=== PATIENT | male | born 1940 | race Caucasian/White ===

== ENCOUNTER 2018-08-27 13:02 | Emergency (ER) | payer OTHER ==
[~2018-08-27] VITALS: Ht 170.2 cm; Wt 73.5 kg
[~2018-08-27 13:02] MED LIST: ALPR0.252 PO; AMOX500C25 PO; ASPI-1718 PO; ATEN25TA7 PO; CLOP75TA PO; FENO145T PO; GEMF600T5 PO; LIRA6SOL SC; RANI-287 PO; SIMV40TA1 PO; TIZA4TAB5 PO
--- NOTE | 2018-08-27 13:02 | NUR ---
PATIENT BIB W/C TO ER BED 2.
--- NOTE | 2018-08-27 13:15 | NUR ---
PT IS A 77 Y/O MALE WHO PRESENTS TO THE ED C/O CHEST PRESSURE. PT STATES THAT IT STARTED SINCE HIS OPEN HEARRT SURGERY 05/03/18. PT ALSO REPORTS CHRONIC DIZZINESS AND REPORTS MULTIPLE FALLS IN THE LAST FEW MONTHS, DENIES LOC. NO OBVIOUS TRAUMA/DEFORMITY, NOTED REDNESS AND TENDERNESS TO R HIP. PT REPORTS 10/10 ACHING R HIP PAIN THAT DOES NOT RADIATE. PT DENIES SOB, N/V/D. PT AWAKE AND ALERT, RR EVEN/UNLABORED. PT REPOSITIONED FOR COMFORT, BED IN LOWEST POSITION. ER MD DR. WATSON NOTIFIED. WILL CONTINUE TO MONITOR. MEDHX:DM, HTN, OPEN HEART SURGERY, HLD, ANXIETY NKA
[2018-08-27 13:20] VITALS: BP 137/89
[2018-08-27] MEDS ORDERED: ASPIRIN 81 MG TAB.CHEW PO ONE (13:20)
[2018-08-27] MEDS ORDERED: MECLIZINE 25 MG TAB PO ONE (13:35)
[2018-08-27 13:47] LABS: BASOPHILS # (AUTO) 0.1 K/uL (0.00-0.22); BASOPHILS % (AUTO) 1.4 % (0.0-2.0); EOSINOPHILS # (AUTO) 0.4 K/uL (0-0.4); EOSINOPHILS % (AUTO) 6.3 % (0.0-4.0); HEMATOCRIT 38.5 % (36-52); HEMOGLOBIN 12.9 g/dL (12.0-18.0); LYMPHOCYTES # (AUTO) 1.4 K/uL (2.0-11.5); LYMPHOCYTES % (AUTO) 23.7 % (20.5-51.1); MEAN CORPUSCULAR HEMOGLOBIN 32 pg (27-31); MEAN CORPUSCULAR HGB CONC 34 g/dL (33-37); MEAN CORPUSCULAR VOLUME 94.2 fL (80-94); MONOCYTES # (AUTO) 0.4 K/uL (0.8-1.0); MONOCYTES % (AUTO) 7.1 % (1.7-9.3); NEUTROPHILS # (AUTO) 3.6 K/uL (1.8-7.7); NEUTROPHILS % (AUTO) 61.5 % (42.2-75.2); PLATELET COUNT (AUTO) 160 K/uL (140-450); RED BLOOD CELL COUNT(AUTO) 4.08 MIL/uL (4.20-6.10); RED CELL DISTRIBUTION WIDTH 13.7 % (11.6-13.7); WHITE BLOOD COUNT (AUTO) 5.8 K/uL (4.8-10.8)
--- NOTE | 2018-08-27 13:53 | NUR ---
PT REFUSING CT OF THE HEAD AT THIS TIME. DR WATSON NOTIFIED.
[2018-08-27 13:55] LABS: ANION GAP 14.4 (8-16); CARBON DIOXIDE 24.9 mmol/L (21-32); CHLORIDE 106 mmol/L (98-107); CREATININE 1.8 mg/dL (0.7-1.3); GLUCOSE 184 mg/dL (74-106); POTASSIUM 5.3 mmol/L (3.5-5.1); SODIUM SERUM 140 mmol/L (136-145); UREA NITROGEN, BLOOD 33 mg/dL (7-18)
--- NOTE | 2018-08-27 13:58 | NUR ---
PT BEING TAKEN TO CT FOR PELVIS
[2018-08-27 14:01] LABS: ALBUMIN 3.2 g/dL (3.4-5.0); ASPARTATE AMINOTRANSFERASE 16 U/L (15-37); TOTAL BILIRUBIN 0.5 mg/dL (0.0-1.0)
[2018-08-27 14:17] LABS: PROTHROMBIN TIME 10.7 secs (10.8-13.4)
--- NOTE | 2018-08-27 14:22 | NUR ---
PT RETURNED FROM CT, [id number].
[2018-08-27] MEDS ORDERED: PATIROMER CALCIUM SORBITEX 8.4 GM PKT PO ONE (14:35)
--- NOTE | 2018-08-27 14:37 | NUR ---
PT STATES HE IS HUNGRY, DIABETIC DIET ORDERED [place] DR WATSON
--- NOTE | 2018-08-27 15:11 | NUR ---
DR WATSON AT BEDSIDE RE-EVALUATING
--- NOTE | 2018-08-27 15:29 | NUR ---
PT MEAL AT BEDSIDE
[2018-08-27] MEDS ORDERED: IBUPROFEN 800 MG TAB PO ONE (15:30)
[2018-08-27 15:45] VITALS: BP 143/87
--- NOTE | 2018-08-27 15:45 | NUR ---
Patient discharged with v/s stable. Written and verbal after care instructions given and explained. Patient alert, oriented and verbalized understanding of instructions. Wheel Chair Assisted BY EMT. All questions addressed prior to discharge. ID band removed. Patient advised to follow up with PMD. Rx of MECLIZINE HYDROCHLORIDE given. Patient educated on indication of medication including possible reaction and side effects. Opportunity to ask questions provided and answered.
== END 2018-08-27 15:45 | disposition home or self-care (01) ==
LOC: MED 13:02
DX: S70.01XA Contusion of right hip, initial encounter (principal); J45.909 Unspecified asthma, uncomplicated; E11.9 Type 2 diabetes mellitus without complications; I10 Essential (primary) hypertension; Z79.82 Long term (current) use of aspirin; Z79.899 Other long term (current) drug therapy; W19.XXXA Unspecified fall, initial encounter; Y93.89 Activity, other specified; Y92.89 Other specified places as the place of occurrence of the external cause; Y99.8 Other external cause status
CPT/HCPCS: 36415; 71045; 72192; 80053; 84484; 85025; 85610; 85730; 93005; 99284; J8597; Q0092

== ENCOUNTER 2019-03-28 15:32 | Emergency (ER) | payer OTHER ==
[~2019-03-28] VITALS: Ht 170.2 cm; Wt 70.3 kg
[2019-03-28 16:00] VITALS: BP 112/71
--- NOTE | 2019-03-28 17:36 | NUR ---
Patient ambulated to bed 1.
[2019-03-28 18:11] LABS: BASOPHILS # (AUTO) 0.1 K/uL (0.00-0.22); BASOPHILS % (AUTO) 2.5 % (0.0-2.0); EOSINOPHILS # (AUTO) 0.2 K/uL (0-0.4); EOSINOPHILS % (AUTO) 4.6 % (0.0-4.0); HEMOGLOBIN 12.7 g/dL (12.0-18.0); LYMPHOCYTES # (AUTO) 1.3 K/uL (2.0-11.5); LYMPHOCYTES % (AUTO) 25.5 % (20.5-51.1); MEAN CORPUSCULAR HEMOGLOBIN 34 pg (27-31); MEAN CORPUSCULAR HGB CONC 33 g/dL (33-37); MEAN CORPUSCULAR VOLUME 100.7 fL (80-94); MONOCYTES # (AUTO) 0.3 K/uL (0.8-1.0); MONOCYTES % (AUTO) 5.3 % (1.7-9.3); NEUTROPHILS # (AUTO) 3.2 K/uL (1.8-7.7); NEUTROPHILS % (AUTO) 62.1 % (42.2-75.2); PLATELET COUNT (AUTO) 177 K/uL (140-450); RED BLOOD CELL COUNT(AUTO) 3.77 MIL/uL (4.20-6.10); RED CELL DISTRIBUTION WIDTH 14.2 % (11.6-13.7); WHITE BLOOD COUNT (AUTO) 5.2 K/uL (4.8-10.8)
--- NOTE | 2019-03-28 18:20 | NUR ---
C/O R FOOT DISCOLORATION/BRUISING/SWELLING, NOTICED WORSENING PAST COUPLE DAYS. DENIES TRAUMA/INJURY. PEDAL PULSES FOUND IN BOTH FEET USING DOPPLER. R FOOT WARM TO TOUCH AND L FOOT COLD TO TOUCH. FULL RANGE OF MOTION TO BOTH FEET. PT ALERT AND AWAKE. DENIES PAIN. AMBULATORY WITH ASSISTANCE. HX DM, HLD, CAD, CARDIAC STENT AND BYPASS, L LEG STENT, BACK SURGERIES RX LIPITOR, LOPID, ASPIRIN 81MG, VICTOSA
[2019-03-28 18:25] LABS: ANION GAP 16.3 (8-16); CHLORIDE 110 mmol/L (98-107); CREATININE 1.9 mg/dL (0.7-1.3); GLUCOSE 150 mg/dL (74-106); POTASSIUM 5.3 mmol/L (3.5-5.1); SODIUM SERUM 146 mmol/L (136-145); UREA NITROGEN, BLOOD 37 mg/dL (7-18)
--- NOTE | 2019-03-28 18:25 | NUR ---
US AT BEDSIDE
--- NOTE | 2019-03-28 18:25 | NUR ---
ACCU CHECK 113
[2019-03-28 18:31] LABS: ALBUMIN 3.6 g/dL (3.4-5.0); ASPARTATE AMINOTRANSFERASE 13 U/L (15-37); TOTAL BILIRUBIN 0.4 mg/dL (0.0-1.0)
[2019-03-28 18:40] LABS: PROTHROMBIN TIME 10.5 secs (10.8-13.4)
--- NOTE | 2019-03-28 19:11 | NUR ---
REPORT GIVEN TO JUANCHO MARSH, US FINISHED AT BEDSIDE
[2019-03-28] MEDS ORDERED: SODIUM ZIRCONIUM CYCLOSILICATE 10 GM POWD.PACK PO ONE (19:15)
--- NOTE | 2019-03-28 20:30 | NUR ---
PATIENT FAMILY AT BEDSIDE. PROVIDED WITH JELLO AND WATER AT THIS TIME.
[2019-03-28] MEDS ORDERED: INSULIN REGULAR, HUMAN 100 UNIT/ML VIAL SUBQ ONE (21:15)
[2019-03-28] MEDS ORDERED: DEXTROSE 50% 50 ML SYR IVP ONE (21:15)
--- NOTE | 2019-03-28 21:15 | NUR ---
PATIENT REFUESED IV, AND IV MEDICATIONS AT THIS TIME. ERMD AWARE.
[2019-03-28 21:34] VITALS: BP 128/70
--- NOTE | 2019-03-28 21:34 | NUR ---
Patient discharged with v/s stable. Written and verbal after care instructions given and explained. Patient verbalized understanding. Ambulatory with steady gait. All questions addressed prior to discharge. Advised to follow up with PMD.
== END 2019-03-28 21:34 | disposition home or self-care (01) ==
LOC: MED 15:32
DX: S90.01XA Contusion of right ankle, initial encounter (principal); E87.5 Hyperkalemia; J45.909 Unspecified asthma, uncomplicated; I25.2 Old myocardial infarction; E11.9 Type 2 diabetes mellitus without complications; I10 Essential (primary) hypertension; Z98.890 Other specified postprocedural states; Z79.2 Long term (current) use of antibiotics; Z79.899 Other long term (current) drug therapy; Z79.82 Long term (current) use of aspirin; Z79.01 Long term (current) use of anticoagulants; X58.XXXA Exposure to other specified factors, initial encounter; Y92.89 Other specified places as the place of occurrence of the external cause; Y93.89 Activity, other specified; Y99.8 Other external cause status
CPT/HCPCS: 36415; 73630; 80053; 82948; 83605; 85025; 85610; 85730; 87040; 93925; 93970; 99284; J1815; Q0092